=== PATIENT | male | born 1985 | race Caucasian/White ===

== ENCOUNTER 2022-07-23 12:14 | Outpatient (CLI) | payer OTHER, SELFPAY ==
--- NOTE | 2022-07-23 13:00 | CRLHL7_ITS ---
For Patients: As a result of the Century Cures Act, medical imaging exams and procedure reports are released immediately into your electronic medical record. You may view this report before your referring provider. If you have questions, please contact your health care provider. INDICATION: Mid abdominal pain. Nausea and vomiting. TECHNIQUE: Contrast-enhanced CT of the abdomen and pelvis. 98 cc nonionic Isovue-370 administered. The patient performed Valsalva maneuvers during imaging. FINDINGS: Clear included lung bases. Normal-appearing liver, spleen, pancreas, gallbladder, adrenal glands, kidneys, abdominal aorta, iliac arteries, inferior vena cava, urinary bladder, prostate gland, and seminal vesicles. There is no evidence for small or large bowel obstruction or ileus. No ascites or lymphadenopathy. No abdominal wall or inguinal hernias. Normal included skeleton. IMPRESSION: Negative CT of the abdomen and pelvis. Please note that all CT scans at this facility use dose modulation, iterative reconstruction, and/or weight-based dosing when appropriate to reduce radiation dose to as low as reasonably achievable. Dictated by Alvaro Guerrero MD @ 07/23/2022 8:54:23 PM (Electronically Signed)
== END 2022-07-23 12:15 | disposition home or self-care (01) ==
LOC: CT 12:15
PROVIDERS: PCP Family Medicine; Visit Provider Surgery
DX: R10.9 Unspecified abdominal pain (principal); R11.2 Nausea with vomiting, unspecified
CPT/HCPCS: 74177; Q9967

== ENCOUNTER 2022-08-20 08:05 | Outpatient (CLI) | payer OTHER, SELFPAY ==
--- NOTE | 2022-08-20 10:02 | W.ANESCHARGE ---
Anesthesia Charges Start Date/Time Anesthesia Start Date: 08/20/22 Anesthesia Start Time: 09:00 Stop Date/Time Anesthesia Stop Date: 08/20/22 Anesthesia Stop Time: 10:00 Summary Emergency: No
== END 2022-08-20 08:06 | disposition home or self-care (01) ==
LOC: OP CLINIC 08:06
PROVIDERS: PCP Family Medicine; Visit Provider Surgery
DX: R10.9 Unspecified abdominal pain (principal); K31.89 Other diseases of stomach and duodenum
CPT/HCPCS: 00813; 43239; 45380; 88305; J2704; J3490

== ENCOUNTER 2024-01-17 07:30 | Outpatient (CLI) | payer OTHER, SELFPAY | END 2024-01-17 07:31 | disposition home or self-care (01) | LOC: NFLDREF 01-19 11:46 | PROVIDERS: PCP Family Medicine; Referring Provider Family Medicine; Visit Provider Family Medicine | DX: Z13.220 Encounter for screening for lipoid disorders (principal); Z13.1 Encounter for screening for diabetes mellitus | CPT/HCPCS: 80061; 82947 ==